=== PATIENT | male | born 1970 | race Caucasian/White ===

== ENCOUNTER 2018-04-08 22:33 | Inpatient (IN) | payer MEDICAID ==
[~2018-04-08] VITALS: Ht 182.9 cm; Wt 71.9 kg
[2018-04-08 22:50] VITALS: Ht 182.9 cm; Wt 71.9 kg
[2018-04-09 02:12] LABS: CALCIUM 7.9 mg/dL (8.5-10.1); CARBON DIOXIDE 30.7 mmol/L (21-32); CHLORIDE SERUM 96 mmol/L (98-107); CREATININE SERUM 0.7 mg/dL (0.7-1.3); GFR1 > 60 mL/min; GLUCOSE SERUM 105 mg/dL (74-106); POTASSIUM SERUM 3.6 mmol/L (3.5-5.1); SODIUM SERUM 130 mmol/L (136-145)
[2018-04-09 02:24] LABS: ALKALINE PHOSPHATASE 231 U/L (46-116); ALT/SGPT 41 U/L (16-63); AST/SGOT 35 U/L (15-37); BILIRUBIN TOTAL 0.36 mg/dL (0.20-1.00); LIPASE 51 IU/L (73-393); TOTAL PROTEIN, SERUM 8.2 g/dL (6.4-8.2)
[2018-04-09 02:26] LABS: ALBUMIN 1.4 g/dL (3.4-5.0)
[2018-04-09 02:43] LABS: PLATELET COUNT 572 x10^3mcL (130-400)
[2018-04-09 02:44] LABS: BASOPHIL % 0.2 % (0-2)
[2018-04-09 02:49] LABS: ovalocyte/elliptocyte 2+; rbc morphology (normal/abnorm) ABNORMAL (NORMAL); tear drop cell (dacryocyte) 1+
[2018-04-09 03:10] LABS: UA SPECIFIC GRAVITY >=1.030 (1.005-1.035); microscopic required? YES; urine erythrocyte NEGATIVE (NEGATIVE)
[2018-04-09 04:21] LABS: T3 TOTAL 0.66 ng/mL
[2018-04-09 04:26] LABS: CHOLESTEROL/HDL RATIO 2.9; MAGNESIUM 1.9 mg/dL (1.8-2.4); PHOSPHOROUS 3.8 mg/dL (2.5-4.9)
[2018-04-09 04:40] LABS: FREE T4 1.23 ng/dL (0.76-1.46); FREE THYROXINE INDEX 2.4 ug/dL (1.4-4.5); T4(THYROXINE) 7.1 ug/dL (4.7-13.3)
[2018-04-09 04:48] VITALS: BP 119/72
[2018-04-09 17:51] LABS: AMPHETAMINE QUAL UR POSITIVE (See below)
[2018-04-09 21:52] LABS: BASOPHIL % 0.2 % (0-2)
[2018-04-09 21:53] VITALS: BP 117/64
[2018-04-09 21:54] LABS: PLATELET COUNT 563 x10^3mcL (130-400); RED CELL DISTRIBUTION WIDTH 19.5 % (11.5-14.5)
[2018-04-09 22:18] LABS: CALCIUM 7.9 mg/dL (8.5-10.1); CARBON DIOXIDE 34.3 mmol/L (21-32); CHLORIDE SERUM 96 mmol/L (98-107); CREATININE SERUM 0.8 mg/dL (0.7-1.3); GFR1 > 60 mL/min; GLUCOSE SERUM 120 mg/dL (74-106); POTASSIUM SERUM 3.1 mmol/L (3.5-5.1); SODIUM SERUM 132 mmol/L (136-145)
[2018-04-09 22:21] LABS: IRON 24 ug/dL (65-170); TOTAL IRON BINDING CAPACITY 133 ug/dL (250-450)
[2018-04-10 05:24] VITALS: BP 119/81
[2018-04-10 07:27] LABS: BASOPHIL % 0.1 % (0-2)
[2018-04-10 07:28] LABS: CALCIUM 7.8 mg/dL (8.5-10.1); CARBON DIOXIDE 32.2 mmol/L (21-32); CHLORIDE SERUM 97 mmol/L (98-107); CREATININE SERUM 0.8 mg/dL (0.7-1.3); GFR1 > 60 mL/min; GLUCOSE SERUM 92 mg/dL (74-106); PHOSPHOROUS 3.8 mg/dL (2.5-4.9); POTASSIUM SERUM 3.4 mmol/L (3.5-5.1); SODIUM SERUM 132 mmol/L (136-145)
[2018-04-10 07:38] LABS: RED CELL DISTRIBUTION WIDTH 19.4 % (11.5-14.5)
[2018-04-10 07:39] LABS: PLATELET COUNT 584 x10^3mcL (130-400); rbc morphology (normal/abnorm) ABNORMAL (NORMAL)
[2018-04-10 08:37] VITALS: BP 109/70
== END 2018-04-10 11:34 | disposition left against medical advice (07) | DRG 137 ==
LOC: ED 22:33 → DU 04-09 02:54
PROVIDERS: Emergency Medicine; Family Medicine
PROC: 30233N1 Transfusion of Nonautologous Red Blood Cells into Peripheral Vein, Percutaneous Approach (ICD-10-PCS; principal; 2018-04-09)
DX: J86.9 Pyothorax without fistula (principal); N17.0 Acute kidney failure with tubular necrosis; E43 Unspecified severe protein-calorie malnutrition; E87.1 Hypo-osmolality and hyponatremia; E11.65 Type 2 diabetes mellitus with hyperglycemia; D68.69 Other thrombophilia; D47.3 Essential (hemorrhagic) thrombocythemia; D64.9 Anemia, unspecified; E87.6 Hypokalemia; F15.10 Other stimulant abuse, uncomplicated; F11.10 Opioid abuse, uncomplicated; R80.9 Proteinuria, unspecified; Z59.0 Homelessness; Z68.20 Body mass index [BMI] 20.0-20.9, adult
CPT/HCPCS: 83880; 84439; C1729; J1940; J2001; J2270; J2405; J2543; J3370; J7030; J7050; P9016; Q0092; Q0163; Q9967

== ENCOUNTER 2018-04-11 03:33 | Emergency (ER) | payer MEDICAID ==
[~2018-04-11] VITALS: Ht 182.9 cm; Wt 68.0 kg
[2018-04-11 03:42] VITALS: Ht 182.9 cm; Wt 68.0 kg
[2018-04-11 07:06] LABS: CALCIUM 8.3 mg/dL (8.5-10.1); CARBON DIOXIDE 33.2 mmol/L (21-32); CHLORIDE SERUM 97 mmol/L (98-107); CREATININE SERUM 0.8 mg/dL (0.7-1.3); GFR1 > 60 mL/min; GLUCOSE SERUM 102 mg/dL (74-106); POTASSIUM SERUM 4.3 mmol/L (3.5-5.1); SODIUM SERUM 134 mmol/L (136-145)
[2018-04-11 07:10] LABS: ALKALINE PHOSPHATASE 234 U/L (46-116); ALT/SGPT 37 U/L (16-63); AST/SGOT 26 U/L (15-37); BASOPHIL % 0.1 % (0-2); BILIRUBIN TOTAL 0.34 mg/dL (0.20-1.00)
[2018-04-11 07:12] LABS: ALBUMIN 1.6 g/dL (3.4-5.0); HDL CHOLESTEROL 26 mg/dL (40-60); TOTAL PROTEIN, SERUM 9.2 g/dL (6.4-8.2)
[2018-04-11 07:14] LABS: RED CELL DISTRIBUTION WIDTH 20.1 % (11.5-14.5)
[2018-04-11 07:15] LABS: PLATELET COUNT 628 x10^3mcL (130-400); rbc morphology (normal/abnorm) ABNORMAL (NORMAL)
[2018-04-11 08:18] LABS: UA SPECIFIC GRAVITY >=1.030 (1.005-1.035); microscopic required? YES; urine erythrocyte NEGATIVE (NEGATIVE)
[2018-04-11 10:32] LABS: MAGNESIUM 2.2 mg/dL (1.8-2.4); PHOSPHOROUS 3.8 mg/dL (2.5-4.9)
[2018-04-11 10:35] LABS: CHOLESTEROL/HDL RATIO 3.3
[2018-04-11 10:41] LABS: FREE T4 1.12 ng/dL (0.76-1.46); FREE THYROXINE INDEX 1.7 ug/dL (1.4-4.5); T3 TOTAL 0.6 ng/mL; T4(THYROXINE) 5.5 ug/dL (4.7-13.3)
[2018-04-11 10:41] LABS: AMPHETAMINE QUAL UR POSITIVE (See below)
[2018-04-11 13:48] VITALS: BP 122/83
== END 2018-04-11 13:48 | disposition short-term general hospital (02) ==
LOC: ED 03:33 → DU 07:53 → ED 07:53 → DU 07:54 → ED 13:48
PROVIDERS: Emergency Medicine; Family Medicine
DX: J86.9 Pyothorax without fistula (principal); N39.0 Urinary tract infection, site not specified; Z87.898 Personal history of other specified conditions
CPT/HCPCS: 83880; 84439; J2001; J2543; J3370; J7030; Q0092

== ENCOUNTER 2019-06-26 05:36 | Emergency (ER) | payer MEDICAID ==
[~2019-06-26] VITALS: Ht 182.9 cm; Wt 70.3 kg
[2019-06-26 05:43] VITALS: Ht 182.9 cm; Wt 70.3 kg
[2019-06-26 07:04] VITALS: BP 130/79
== END 2019-06-26 07:04 | disposition home or self-care (01) ==
LOC: ED 05:36
DX: L02.414 Cutaneous abscess of left upper limb (principal)
CPT/HCPCS: J2001